=== PATIENT | male | born 1970 | race Caucasian/White ===

== ENCOUNTER 2020-12-05 14:11 | Emergency (ER) | payer OTHER, SELFPAY ==
[2020-12-05 14:13] VITALS: BP 168/117; PULSE 112; RESP 17; TEMP 37.2; O2SAT 95; BMI 38.5
--- NOTE | 2020-12-05 14:30 | EKG12_ITS ---
Test Reason : HYPERTENSION Blood Pressure : / mmHG Vent. Rate : 099 BPM Atrial Rate : 099 BPM P-R Int : 138 ms QRS Dur : 082 ms QT Int : 338 ms P-R-T Axes : 032 014 083 degrees QTc Int : 433 ms Poor data quality, interpretation may be adversely affected Normal sinus rhythm Nonspecific T wave abnormality Abnormal ECG Confirmed by NETTIE INGRAM, MAHESH ([id number]), editorial project manager SHONNA AVALOS ([id number]) on 12/09/2020 1:52:35 PM Referred By: JOSHUA Confirmed By:MAHESH SHEFFIELD MD
--- NOTE | 2020-12-05 14:31 | EX.ED.DYSGE1 ---
HPI History of Present Illness Chief Complaint: Hypertension Detail of Chief Complaint: Patient presents with hypertension since yesterday Informant: patient Narrative Narrative: Patient presents with complaint of a headache that he noticed yesterday. Patient states that he was never has headache so he checked his blood pressure and it was 150/104. Normally his blood pressures in the 130s over 90s. Patient went to urgent care today and was referred to the emergency department. Patient states that he still has the headache and currently rates it about a 6 out of 10 and is frontal. Mild photophobia. No nausea or vomiting. No history of migraines. Patient has not had any falls or head injuries. He denies recent illness. Denies any Covid exposures. Denies loss of taste or smell. Prior similar symptoms: No PFSH PFSH Medical History (Updated 12/05/20 @ 16:[address] Maribell Sanchez, ) HTN (hypertension) Home Medications hydrochlorothiazide 25 mg PO DAILY #30 tab 12/05/20 [Rx Last Taken Unknown] losartan 100 mg PO DAILY 12/05/20 [History Last Taken Unknown] Allergy/AdvReac Type Severity Reaction Status Date / Time Penicillins AdvReac Vomiting Verified 12/05/20 14:11 soy AdvReac Nausea/Vom/ Verified 12/05/20 14:11 Diarrhea Social History Smoking Status: Current every day smoker tobacco type: cigarettes ROS ROS ED Constitutional Constitutional ED: Reports systems reviewed and no addt'l complaints, except as documented; Denies body ache(s), change in weight or chills Eyes Eyes: Denies acute decrease in peripheral vision, change in vision, double vision or loss of vision ENT ENT ED: Reports none; Denies ear pain, lip swelling, loss taste/smell, neck pain, otalgia or sore throat Cardiovascular Cardiovascular: Reports none; Denies abdominal pain, chest pain with activity, leg edema, lightheadedness, palpitations, rapid heart rate or syncope Respiratory/Chest Respiratory/Chest: Reports none; Denies change in mental status, dry cough, dyspnea, hemoptysis, shortness of breath at rest or shortness of breath with exertion Gastrointestinal Gastrointestinal: Reports none; Denies abdominal pain, change in stool character, diarrhea, hematemesis, hematochezia, melena, rectal bleeding or vomiting Genitourinary Genitourinary ED: Reports none; Denies abdominal discomfort, anuria, dysuria, genital pain or polyuria Musculoskeletal Musculoskeletal: Reports none; Denies arthralgias, back pain, difficulty walking, extremity pain, muscle weakness or myalgias Integumentary Reports none; Denies abscess or rash Neurologic Neurologic: Reports none and headache(s); Denies abnormal gait, confusion, focal weakness, frequent falls, loss of vision, numbness, paresthesias, radicular pain, vertigo or weakness Psychiatric Psychiatric: Reports systems reviewed and no addt'l complaints, except as documented and none; Denies behavioral changes, confusion, difficulty concentrating, hallucinations, suicidal ideation, tactile hallucinations or visual hallucinations Endocrine Endocrinology: Denies none, cold intolerance, excessive sweating, fatigue or heat intolerance Hematologic/Lymphatic Hematologic/Lymphatic: Reports none; Denies anemia, easy bleeding or easy bruising Allergic/Immunologic Allergic/Immunologic ED: Denies as per HPI, none, lip swelling, mouth swelling, throat swelling, tongue swelling or hives EXAM Physical Exam Const Vital Signs: 12/05/20 14:13 12/05/20 15:06 12/05/20 16:11 Temperature 99.0 F Temperature Source Temporal Pulse Rate 112 H 83 Respiratory Rate 17 18 Respiratory Effort Normal Non-Labored Blood Pressure 168/117 H 146/90 H Blood Pressure Mean 134 108 Pulse Ox 95 97 Oxygen Delivery Method Room Air Room Air Positive well nourished and well developed General Appearance ED: well developed and NAD HEENT Reports TM's clear and moist mucous membranes normocephalic and atraumatic; Negative for trauma or tenderness Tympanic Membrane ED: Yes TM's clear Eyes PERRL and EOMs intact bilaterally General Eye ED: Negative for pale conjunctiva or scleral icterus Neck no lymphadenopathy, supple and no JVD General: Negative for tenderness Chest Wall inspection of chest normal and palpation of chest normal Chest: Negative for tenderness Resp normal respiratory effort and clear to auscultation bilaterally Effort and Inspection: Negative for respiratory distress or pain with movement Auscultation: Negative for rhonchi, wheezes or diminished lung sounds Cardio regular rate, regular rhythm, S1 normal heart sound, S2 normal heart sound and no murmurs Peripheral Pulses: pulses 2+ throughout GI normal to inspection, nondistended, normoactive bowel sounds, soft to palpation, non-tender, non-distended and no masses Back/Spine no CVA tenderness and no thoracic nor lumbar tenderness Extremity normal to inspection General Extremety ED: Negative for edema General Extremity: Negative for edema Neuro oriented x3, CN's II-XII intact bilaterally, no sensory deficits noted and gait normal Neuro Narrative: Finger-nose and heel mayen testing within normal limits, negative Romberg, negative pronator drift , Fundi benign Sensorium / Orientation: awake, alert, oriented to person, oriented to place and oriented to time Motor Exam: strength 5/5 throughout and strength abnormal Psych mental status grossly normal Skin no rashes or lesions noted and no wounds MDM MDM MDM Narrative Medical decision making narrative: Patient's work-up in the emergency department is unremarkable. I did discuss case with Dr. Perez who recommended that we start patient on hydrochlorothiazide 25 mg daily in addition to the losartan that he is currently taking. Patient to follow-up with their office within next 3 to 5 days. Lab Data Attestation: I reviewed the patient's lab results. Labs: Laboratory Results - last 24 hr 12/05/20 12/05/20 14:33 14:33 WBC 7.4 RBC 5.40 Hgb 17.3 H Hct 50.2 MCV 93.0 MCH 32.0 MCHC 34.5 RDW Std Deviation 41.9 RDW Coeff of Jorge 12.1 Plt Count 203 MPV 9.3 Immature Gran % (Auto) 0.300 Neut % (Auto) 67.0 Lymph % (Auto) 25.2 [place] % (Auto) 5.8 Eos % (Auto) 1.2 Baso % (Auto) 0.5 Absolute Neuts (auto) 5.0 Absolute Lymphs (auto) 1.87 Nucleated RBC % 0 Sodium 139 Potassium 3.9 Chloride 105 Carbon Dioxide 28.0 Anion Gap 6 BUN 13 Creatinine 0.99 Estim Creat Clear Calc 94.22 Est GFR (MDRD) Af Amer 104 Est GFR (MDRD) Non-Af 86 BUN/Creatinine Ratio 13.2 Glucose 128 H Calcium 9.2 Troponin I < 0.015 Radiography Diagnostic Testing: Radiology Impression Brain CT 12/05/20 15:25 IMPRESSION: Normal unenhanced CT scan of the brain. Electronically Signed: Gregory Noble MD at 15:55 EDT Tel , Service support , EKG Initial EKG: Comments: Sinus rhythm with a ventricular rate of 89 bpm with no acute ST segment changes. Discharge Plan Triage Chief Complaint: Hypertension ED Provider: Maribell Sanchez Dx/Rx/DC Orders Clinical Impression: Hypertension, Cephalalgia Prescriptions: New hydrochlorothiazide 25 mg tablet 25 mg PO DAILY Qty: 30 RF: 0 No Action losartan 100 mg tablet 100 mg PO DAILY RF: 0 Primary Care Provider: Eagle Molina Referrals: Eagle Molina DO [Primary Care Provider] - 3-5 Days Disposition Disposition: Home, self care
[2020-12-05] MEDS: 0.9% Normal Saline 1,000 ML 1000 ML IV (15:08)
[2020-12-05 15:10] LABS: Absolute Lymphocyte Count 1.87 X10^3/uL (0.83-4.51); Basophil# 0.04 X10^3/uL; Basophil% 0.5 % (0-1); Eosinophil# 0.09 X10^3/uL; Eosinophils% 1.2 % (0-5); Hematocrit 50.2 % (40-54); Hemoglobin 17.3 g/dL (13.0-16.5); Lymphocyte # 1.87 X10^3/ul (0.83-4.51); Lymphocyte % 25.2 % (19-41); Mean Corp Hgb Conc 34.5 g/dL (32-36); Mean Platelet Vol. 9.3 fl (6.2-12.0); Monocyte# 0.43 X10^3/uL; Monocyte% 5.8 % (0-10); NRBC Flagged by Analyzer 0 % (0-5); Neutrophil # 4.96 X10^3/uL (2.7-7.7); Platelet Count 203 K/mm3 (150-450); RBC Distribution Width CV 12.1 % (11.6-14.6); RBC Distribution Width SD 41.9 fl (35.1-43.9); White Blood Count 7.4 K/mm3 (4.4-11.0)
--- NOTE | 2020-12-05 15:25 | CT_ITS ---
STUDY: CT BRAIN WITHOUT CONTRAST REASON FOR EXAM: Male, 50 years old. headache, hypertension RADIATION DOSAGE (If Supplied By Facility): CTDIvol = ( 44.99 ) mGy, DLP = ( 796.11 ) mGycm TECHNIQUE: Transaxial CT imaging of the brain was performed without administration of intravenous contrast material. Individualized dose optimization techniques were used for this CT. COMPARISON: No relevant priors. FINDINGS: Normal soft tissue structures. Normal calvarium. Normal size ventricles and extra-axial spaces for the patient''s age. Normal white matter tracts of the cerebral hemispheres. Normal basal ganglia and thalami. Normal brainstem. Normal cerebellum. There is no intracranial hemorrhage. There are no findings of an acute ischemic infarction. Normal visualized paranasal sinuses. CT/Brain/Head without Contrast IMPRESSION: Normal unenhanced CT scan of the brain. Electronically Signed: Gregory Noble MD at 15:55 EDT Tel , Service support ,
[2020-12-05 15:32] LABS: Anion Gap 6 (5-15); BUN 13 mg/dL (7-18); BUN/Creat Ratio 13.2 RATIO (10-20); Calcium,Total 9.2 mg/dL (8.5-10.1); Chloride 105 mmol/L (98-107); Creatinine, Serum 0.99 mg/dL (0.70-1.30); EST Glomerular Filtration Rate 86 mL/min (>60); Est Glom Filt Rate - Afr Amer 104 mL/min (>60); Estimated Creatinine Clearance 94.22 ml/min; Glucose 128 mg/dL (74-106); Potassium 3.9 mmol/L (3.5-5.1); Sodium Level 139 mmol/L (136-145)
[2020-12-05 16:11] VITALS: BP 146/90; PULSE 83; RESP 18; O2SAT 97
== END 2020-12-05 16:38 | disposition home or self-care (01) ==
PROVIDERS: Emergency Provider Emergency Medicine; PCP Student in an Organized Health Care Education/Training Program
DX: I10 Essential (primary) hypertension (principal); R51.9 Headache, unspecified; F17.210 Nicotine dependence, cigarettes, uncomplicated
CPT/HCPCS: 70450; 80048; 84484; 85025; 87426; 93005; 99283; J7030; A4216

== ENCOUNTER 2021-01-05 17:19 | Emergency (ER) | payer OTHER, SELFPAY ==
[2021-01-05 17:19] VITALS: BP 165/75; PULSE 115; RESP 18; TEMP 36.2; O2SAT 96; BMI 37.9
[2021-01-05] MEDS: Fluorescein 1 MG STRIP 1 STRIP RIGHT EYE (17:34)
--- NOTE | 2021-01-05 17:38 | EDS_ITS ---
HPI History of Present Illness Chief Complaint: Eye Problem Detail of Chief Complaint: Red right eye since yesterday evening Informant: patient Narrative Narrative: Patient presents to the emergency department with complaint of a red right eye. Patient states that he was washing the car yesterday and he is not sure if he got some soap in it. He irrigated it at home yesterday. Initially felt like there was a foreign body sensation but he no longer does. Patient states that last evening it started to become red. Patient has small amount of matting to the eye this morning. He denies any eye pain. He denies any visual changes. He denies fever or recent illness. Prior similar symptoms: No PFSH [facility] Medical History (Updated 01/05/21 @ 17:[address] Maribell Sanchez, ) HTN (hypertension) Home Medications hydrochlorothiazide 25 mg PO DAILY #30 tab 12/05/20 [Rx Last Taken Unknown] losartan 100 mg PO DAILY 12/05/20 [History Last Taken Unknown] Allergy/AdvReac Type Severity Reaction Status Date / Time Penicillins AdvReac Vomiting Verified 01/05/21 17:20 soy AdvReac Nausea/Vom/ Verified 01/05/21 17:20 Diarrhea Social History Smoking Status: Current every day smoker tobacco type: cigarettes ROS ROS ED Constitutional Constitutional ED: Reports systems reviewed and no addt'l complaints, except as documented; Denies body ache(s), change in weight or chills Eyes Eyes: Reports other Details: Red right eye ; Denies acute decrease in peripheral vision, change in vision, double vision or loss of vision ENT ENT ED: Reports none; Denies ear pain, lip swelling, loss taste/smell, neck pain, otalgia or sore throat Cardiovascular Cardiovascular: Reports none; Denies abdominal pain, chest pain with activity, leg edema, lightheadedness, palpitations, rapid heart rate or syncope Respiratory/Chest Respiratory/Chest: Reports none; Denies change in mental status, dry cough, dyspnea, hemoptysis, shortness of breath at rest or shortness of breath with exertion Gastrointestinal Gastrointestinal: Reports none; Denies abdominal pain, change in stool character, diarrhea, hematemesis, hematochezia, melena, rectal bleeding or vomiting Genitourinary Genitourinary ED: Reports none; Denies abdominal discomfort, anuria, dysuria, genital pain or polyuria Musculoskeletal Musculoskeletal: Reports none; Denies arthralgias, back pain, difficulty walking, extremity pain, muscle weakness or myalgias Integumentary Reports none; Denies abscess or rash Neurologic Neurologic: Reports none; Denies abnormal gait, confusion, focal weakness, frequent falls, headache(s), loss of vision, numbness, paresthesias, radicular pain, vertigo or weakness Psychiatric Psychiatric: Reports systems reviewed and no addt'l complaints, except as documented and none; Denies behavioral changes, confusion, difficulty concentrating, hallucinations, suicidal ideation, tactile hallucinations or visual hallucinations Endocrine Endocrinology: Denies none, cold intolerance, excessive sweating, fatigue or heat intolerance Hematologic/Lymphatic Hematologic/Lymphatic: Reports none; Denies anemia, easy bleeding or easy bruising Allergic/Immunologic Allergic/Immunologic ED: Denies as per HPI, none, lip swelling, mouth swelling, throat swelling, tongue swelling or hives EXAM Physical Exam Const Vital Signs: 01/05/21 17:19 Temperature 97.1 F L Temperature Source Temporal Pulse Rate 115 H Respiratory Rate 18 Blood Pressure 165/75 H Blood Pressure Mean 105 Pulse Ox 96 Oxygen Delivery Method Room Air Positive well nourished and well developed General Appearance ED: well developed and NAD HEENT Reports TM's clear and moist mucous membranes normocephalic and atraumatic; Negative for trauma or tenderness Tympanic Membrane ED: Yes TM's clear Eyes PERRL and EOMs intact bilaterally Eyes Narrative: Evaluation of the right eye-eyelids everted no foreign bodies noted. He does have conjunctival erythema. Pupils are equal react light bilaterally. Extraocular muscle movement is normal and painless. Patient I stained with fluorescein and no evidence of uptake noted. No foreign bodies on the cornea noted. General Eye ED: Negative for pale conjunctiva or scleral icterus Neck no lymphadenopathy, supple and no JVD General: Negative for tenderness Chest Wall inspection of chest normal and palpation of chest normal Chest: Negative for tenderness Resp normal respiratory effort and clear to auscultation bilaterally Effort and Inspection: Negative for respiratory distress or pain with movement Auscultation: Negative for rhonchi, wheezes or diminished lung sounds Cardio regular rate, regular rhythm, S1 normal heart sound, S2 normal heart sound and no murmurs Peripheral Pulses: pulses 2+ throughout GI normal to inspection, nondistended, normoactive bowel sounds, soft to palpation, non-tender, non-distended and no masses Back/Spine no CVA tenderness and no thoracic nor lumbar tenderness Extremity normal to inspection General Extremety ED: Negative for edema General Extremity: Negative for edema Neuro oriented x3, CN's II-XII intact bilaterally, no sensory deficits noted and gait normal Sensorium / Orientation: awake, alert, oriented to person, oriented to place and oriented to time Motor Exam: strength 5/5 throughout and strength abnormal Psych mental status grossly normal Skin no rashes or lesions noted and no wounds MDM MDM MDM Narrative Medical decision making narrative: At this point etiology of the conjunctival erythema unclear and expected may be related to chemical conjunctivitis however cannot rule out bacterial conjunctivitis. Patient will be started on gentamicin ophthalmic drops. He will be referred to ophthalmology for follow-up within the next 1 to 2 days. Discharge Plan Triage Chief Complaint: Eye Problem ED Provider: Maribell Sanchez Dx/Rx/DC Orders Clinical Impression: Conjunctivitis Instructions: Red Eye Infection Tx Prescriptions: No Action losartan 100 mg tablet 100 mg PO DAILY RF: 0 hydrochlorothiazide 25 mg tablet 25 mg PO DAILY Qty: 30 RF: 0 Primary Care Provider: Eagle Molina Referrals: Eagle Molina DO [Primary Care Provider] - Kika Decker MD [STAFF PHYSICIAN] - 1-2 Days if not improving Disposition Disposition: Home, Self Care
[2021-01-05] MEDS: Gentamicin Sulfate 1 OPTH.BTL 2 DRP RIGHT EYE (17:50)
== END 2021-01-05 17:52 | disposition home or self-care (01) ==
LOC: ED 17:46
PROVIDERS: Emergency Provider Emergency Medicine; PCP Student in an Organized Health Care Education/Training Program
DX: H10.9 Unspecified conjunctivitis (principal); F17.210 Nicotine dependence, cigarettes, uncomplicated
CPT/HCPCS: 99283

== ENCOUNTER 2023-03-08 04:36 | Emergency (ER) | payer OTHER, SELFPAY ==
[2023-03-08 04:37] VITALS: BP 170/98; PULSE 98; RESP 18; TEMP 36.4; O2SAT 98; BMI 87.8
[2023-03-08 04:44] VITALS: RESP 18
--- NOTE | 2023-03-08 05:24 | EX.ED.GENINJ ---
HPI History of Present Illness Chief Complaint: Head Injury Narrative Narrative: 53-year-old male hit his head at work sustaining a laceration to the scalp. He did not get knocked out. He has no headache, dizziness, nausea, vomiting. States he is otherwise healthy prior to this. [facility] Medical History HTN (hypertension) Home Medications hydrochlorothiazide 25 mg tablet 25 mg PO DAILY #30 tabs 12/05/20 [Rx Last Taken Unknown] losartan 100 mg tablet 100 mg PO DAILY 12/05/20 [History Last Taken Unknown] Allergy/AdvReac Type Severity Reaction Status Date / Time Penicillins AdvReac Vomiting Verified 03/08/23 04:41 soy AdvReac Nausea/Vom/ Verified 03/08/23 04:41 Diarrhea Social History Smoking Status: Current every day smoker tobacco type: cigarettes ROS ROS ED Constitutional Constitutional ED: Denies chills, fever(s) or sweats Eyes Eyes: Denies blurry vision or change in vision ENT ENT ED: Denies ear pain or sore throat Cardiovascular Cardiovascular: Denies chest pain, palpitations or racing heartbeat Respiratory/Chest Respiratory/Chest: Denies cough, dyspnea or sputum Gastrointestinal Gastrointestinal: Denies abdominal pain, constipation, diarrhea, nausea or vomiting Genitourinary Genitourinary ED: Denies dysuria, hematuria or urinary frequency Musculoskeletal Musculoskeletal: Denies arthralgias, myalgias or neck pain Integumentary Reports other Details: Scalp laceration ; Denies abscess, Abrasions or rash Neurologic Neurologic: Denies headache(s), paresthesias or weakness Psychiatric Psychiatric: Denies anxiety, depression, suicidal ideation or suicidal thoughts Endocrine Endocrinology: Denies polydipsia or polyuria EXAM Physical Exam Const Vital Signs: 03/08/23 04:37 03/08/23 04:43 03/08/23 04:44 Temperature 97.5 F L Temperature Source Temporal Pulse Rate 98 Respiratory Rate 18 18 Respiratory Effort Normal Blood Pressure 170/98 H Blood Pressure Mean 122 Pulse Ox 98 Oxygen Delivery Method Room Air Positive well nourished HEENT HEENT Narrative: 5 cm crescent-shaped scalp laceration at the vertex. Partial-thickness. No active bleeding Eyes PERRL and EOMs intact bilaterally Resp normal respiratory effort Cardio regular rhythm Rate: regular rate Neuro oriented x3, CN's II-XII intact bilaterally, no focal motor deficits and no sensory deficits noted Sensorium / Orientation: alert Motor Exam: strength 5/5 throughout Psych mental status grossly normal Skin Skin Narrative: As documented above PROC Procedures Lacerations scalp lacertion: Length: 1.96 in Depth: Skin Shape: [place] shape Prep: Sterile Conditions and Chlorhexadine Laceration repair: Irrigated Irrigated (ml): 250 Number of Sutures/Marty: 5 Comment: Staple MDM MDM MDM Narrative Medical decision making narrative: Patient with laceration to the scalp. This was stapled without sequela. Patient tolerated well. Please see procedure note. Patient put in a dressing. He is able to go back to work. He did not sustain a serious injury. Recommended wound care and return precautions. Impression: 1. 5 cm scalp laceration Discharge Plan Triage Chief Complaint: Head Injury ED Provider: Luiz Feliciano Dx/Rx/DC Orders Instructions: ED Laceration Scalp Stitches or Marty Prescriptions: No Action losartan 100 mg tablet 100 mg PO DAILY Patient Comments: TAKE 1 TABLET BY MOUTH ONCE DAILY hydrochlorothiazide 25 mg tablet 25 mg PO DAILY Qty: 30 0RF Primary Care Provider: Eagle Molina Referrals: Eagle Molina DO [Primary Care Provider] - Disposition Disposition: Home, Self Care
== END 2023-03-08 06:02 | disposition home or self-care (01) ==
PROVIDERS: Emergency Provider Student in an Organized Health Care Education/Training Program; PCP Student in an Organized Health Care Education/Training Program; Visit Provider Student in an Organized Health Care Education/Training Program
DX: S01.01XA Laceration without foreign body of scalp, initial encounter (principal); I10 Essential (primary) hypertension; F17.210 Nicotine dependence, cigarettes, uncomplicated; Z79.899 Other long term (current) drug therapy; X58.XXXA Exposure to other specified factors, initial encounter; Y99.0 Civilian activity done for income or pay; Y92.69 Other specified industrial and construction area as the place of occurrence of the external cause
CPT/HCPCS: 12002; 99282